=== PATIENT | female | born 1980 | race Caucasian/White ===

== ENCOUNTER 2016-10-04 10:45 | Emergency (ER) | payer OTHER ==
[2016-10-04 10:51] VITALS: BP 149/81; PULSE 77; TEMP 98.1; BMI 20.1
--- NOTE | 2016-10-04 11:22 | PDOC ---
History of Present Illness - General Chief Complaint: Urinary Problem Stated Complaint: ABD PAIN Time Seen by Provider: 10/04/16 11:15 History Source: Patient Exam Limitations: Language Barrier ( in room speaks Indonesian) - History of Present Illness Travel History: No Initial Comments: 10/04/16 11:45 Patient here with , speaks Malay and with translation through her reports pain, burning, frequency to urine for the past 4-5 days. Denies fever but has felt uncomfortable and has increasing amounts of pain suprapubic that radiates to her back. Had an infection a few months ago but uncertain as to medication used for treatment. 10/04/16 19:32 Timing/Duration: reports: getting worse Quality: reports: moderate, sharpness, stabbing Pain Radiation: reports: other (Suprapubic) Past History - Travel Traveled outside of the country in the last 30 days: No Close contact w/someone who was outside of country & ill: No - Past Medical History Allergies/Adverse Reactions: Allergies Allergy/AdvReac Type Severity Reaction Status Date / Time No Known Allergies Allergy Verified 10/04/16 10:48 Home Medications: Ambulatory Orders Nitrofurantoin Macrocrystal [Macrodantin -] 100 mg PO BID #14 capsule 10/04/16 Other medical history: denies - Immunization History Immunization Up to Date: No - Psycho/Social/Smoking Cessation Hx Anxiety: No Suicidal Ideation: No Smoking History: Never smoked Have you smoked in the past 12 months: No Information on smoking cessation initiated: No Hx Alcohol Use: No Drug/Substance Use Hx: No Substance Use Type: None Review of Systems - Review of Systems Able to Perform ROS?: Yes Is the patient limited Indonesian proficient: Yes Constitutional: Yes: Symptoms Reported, See HPI, Chills, Malaise HEENTM: No: Symptoms Reported Respiratory: No: Symptoms reported : Yes: Symptoms Reported, See HPI, Burning, Dysuria, Discharge, Frequency, Flank Pain. No: Hematuria All Other Systems: Reviewed and Negative *Physical Exam - Vital Signs Last Vital Signs Temp Pulse Resp BP Pulse Ox 98.1 F 77 20 149/81 99 10/04/16 10:49 10/04/16 10:49 10/04/16 10:49 10/04/16 10:49 10/04/16 10:49 - Physical Exam General Appearance: Yes: Nourished, Appropriately Dressed, Apparent Distress, Mild Distress HEENT: positive: RAJESH, Normal ENT Inspection, TMs Normal, Pharynx Normal Neck: positive: Tender midline Respiratory/Chest: positive: Lungs Clear Cardiovascular: negative: Regular Rhythm Gastrointestinal/Abdominal: positive: Normal Bowel Sounds, Soft, Tenderness ( suprapubic tenderness,). negative: Tender Extremity: positive: Normal Capillary Refill, Normal Inspection Integumentary: positive: Normal Color, Dry, Warm, Pale Neurologic: positive: cut file clerk II-XII NML intact, Fully Oriented, Alert, Normal Mood/ Affect, Normal Response, Motor Strength 12/21 Progress Note - Progress Note Progress Note: Urinary tract infection, will treat with Macrobid *DC/Admit/Observation/Transfer Diagnosis at time of Disposition: Urinary tract infection Qualifiers: Urinary tract infection type: acute cystitis Hematuria presence: without hematuria Qualified Code(s): N30.00 - Acute cystitis without hematuria - Discharge Dispostion Admit: No - Prescriptions Prescriptions: Nitrofurantoin Macrocrystal [Macrodantin -] 100 mg PO BID #14 capsule - Patient Instructions Printed Discharge Instructions: DI for Urinary Tract Infection (UTI) Additional Instructions: Rest, drink lots of fluids: Teas, water, soups Avoid contact with others until fevers and symptoms resolved Lots of handwashing and good hygiene Continue [id number] medications for symptomatic relief Tylenol or Motrin for fever and pain Continue all of antibiotics until completed Followup with private physician in one week for repeat urinalysis/reevaluation Return to emergency department for worsened symptoms, fevers, dehydration
[2016-10-04 11:35] LABS: URINE APPEARANCE SLCLOUDY; URINE BILIRUBIN NEGATIVE (NEGATIVE); URINE BLOOD NEGATIVE (NEGATIVE); URINE COLOR LTYELLOW; URINE GLUCOSE (UA) NEGATIVE (NEGATIVE); URINE KETONE NEGATIVE (NEGATIVE); URINE LEUK ESTERASE 1+ (NEGATIVE); URINE NITRITE NEGATIVE (NEGATIVE); URINE PROTEIN NEGATIVE (NEGATIVE); URINE UROBILINOGEN NEGATIVE E.U./dl (0.2-1.0)
[2016-10-04 11:37] LABS: URINE RBC 3 /hpf (0-3); URINE WBC 7 /hpf (3-5)
[2016-10-04] MEDS ORDERED: NITROFURANTOIN MACROCRYSTAL 50 MG CAPSULE (FP) PO SCH (11:45)
[2016-10-04] MEDS ORDERED: NITROFURANTOIN MACROCRYSTAL 50 MG CAPSULE (FP) ONE (11:48)
== END 2016-10-04 12:03 | disposition home or self-care (01) ==
LOC: JERFT 10:45
DX: N30.00 Acute cystitis without hematuria (principal)
CPT/HCPCS: 81003; 81015; 84703; 87086; 99281-25

== ENCOUNTER 2022-06-14 12:08 | Emergency (ER) | payer OTHER ==
[2022-06-14 12:27] VITALS: BP 130/79; PULSE 79; RESP 20; TEMP 98.9; BMI 25.0
[2022-06-14] MEDS ORDERED: IBUPROFEN 400 MG TABLET (FP) PO ONE ×2 (14:16→14:25)
[2022-06-14 14:34] LABS: HEMATOCRIT 35.2 % (32.4-45.2); HEMOGLOBIN 11.9 G/dL (10.7-15.3); MCH 26.6 pg (25.7-33.7); MCHC 33.7 g/dl (32.0-36.0); MEAN CELL VOLUME 78.7 fl (80-96); MEAN PLT VOLUME 9.6 fl (7.5-11.1); PLATELET COUNT 200.5 10^3/uL (134-434); RBC 4.47 10^6/uL (3.60-5.2); RDW 16.5 % (11.6-15.6); WHITE BLOOD COUNT 3.2 10^3/uL (4.0-10.8)
[2022-06-14 14:38] LABS: PLATELET ESTIMATE ADEQUATE
== END 2022-06-14 15:02 | disposition home or self-care (01) ==
LOC: FER 12:08
DX: N93.9 Abnormal uterine and vaginal bleeding, unspecified (principal)
CPT/HCPCS: 36415; 81025; 85025; 99283-25